=== PATIENT | male | born 1960 ===

== ENCOUNTER 2025-02-10 09:13 | Outpatient (CLI) | payer OTHER, SELFPAY ==
--- NOTE | 2025-02-10 09:27 | ECG_ITS ---
Test Date: 2025-02-10 09:44:28 Measurements Intervals Bieber Rate: 74 P: 80 OK: 217 QRS: 71 QRSD: 97 T: 75 QT: 384 QTc: 427 Interpretive Statements SINUS RHYTHM WITH FIRST DEGREE AV BLOCK ANTEROSEPTAL INFARCT, AGE INDETERMINATE ABNORMAL ECG No previous ECG available for comparison Electronically Signed On 02-10-2025 10:05:46 TILE DECORATOR by John Boogie D.O.
[2025-02-10 09:31] LABS: Hematocrit 41.0 % (40.0-54.0); Hemoglobin 13.8 g/dL (14.0-18.0); Immature Granulocyte Percent A 0.4 % (0.0-0.0); Lymphocytes Absolute Auto 1.33 K/mm3 (1.10-4.50); Mean Corpuscular HGB Conc 33.7 g/dL (32-36); Mean Corpuscular Hemoglobin 32.6 pg (27.0-31.0); Mean Corpuscular Volume 96.9 fL (78.0-102.0); Nucleated Red Blood Cells Absolute Auto 0.00 K/mm3 (0.00-0.00); Nucleated Red Blood Cells Perc 0.0 % (0-0.0); Platelet Count Result 374 K/mm3 (150-420); Red Blood Count 4.23 M/mm3 (4.70-6.10); White Blood Count 8.2 K/mm3 (4.8-10.8)
--- OUTSIDE RECORDS SUMMARY | 2025-02-10 09:32 | XMS_ITS | Clinical Summary ---
Author Organization [facility] Address [address] [place] [id number] Care Team Providers Care Metallurgical Inspector Name Role Phone Michele Marley MD Primary Care Provider Allergies Active Allergy Reactions Criticality Noted Date Comments Gina Mobley 04/20/2021 Altered mental status Medications SYMBICORT 160-4.5 MCG/ACT inhaler Inhale 2 puffs into the lungs daily. 04/15/2021 Active citalopram 20 MG tablet Take 1 tablet by mouth daily. 03/11/2021 Active montelukast 10 MG tablet Take 1 tablet by mouth daily. 03/24/2021 Active omeprazole 20 MG capsule Take 1 capsule by mouth daily. 02/06/2021 Active Active Problems Problem Noted Date Diagnosed Date Trigger middle finger of left hand 04/22/2021 Dupuytren's contracture of left hand 04/22/2021 Family History Medical History Relation Comments No Known Problems Brother 2 No Known Problems Brother 3 No Known Problems Brother 4 Heart Attack Father blood clotting problem Father Asthma Mother Heart Attack Mother Relation Status Comments Brother 1 Brother 2 Alive Brother 3 Alive Brother 4 Alive Father Mother Social History Tobacco Use Types Packs/Day Years Used Date Smoking Tobacco: Every Day Cigarettes Smokeless Tobacco: Never Alcohol Use Standard Drinks/Week Comments Not Currently 0 (1 standard drink = 0.6 oz pur e alcohol) Sex and Gender Information Value Date Recorded Sex Assigned at Not on file Legal Sex Male 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 Gender Identity Not on file Sexual Orientation Not on file Last Filed Vital Signs Vital Sign Reading Time Taken Comments Blood Pressure - - Pulse - - Temperature - - Respiratory Rate - - Oxygen Saturation - - Inhaled Oxygen Concentration - - Weight 64.9 kg (143 lb) 04/20/2021 2:46 PM KEY ACCOUNT EXECUTIVE Height 182.9 cm (6') 04/20/2021 2:46 PM KEY ACCOUNT EXECUTIVE Body Mass Index 19.39 04/20/2021 2:46 PM KEY ACCOUNT EXECUTIVE Plan of Treatment Health Maintenance Due Date Last Done Comments Colorectal Cancer Screening Colonoscopy (10 Years) 1960 Annual Physical 09/26/1963 Hepatitis C 1978 DTaP, Tdap and Td Vaccines ( 1 - Tdap) 09/26/1979 Pneumococcal Vaccine: 50+ Years (1 of 2 - PCV) 09/26/1979 Zoster Vaccines (1 of 2) 2010 COVID-19 Vaccine (4 - 2024-2 6 season) 2024 02/23/2020, 02/02/2020, 01/14/2020 Influenza Adult (#1) 2024 RSV Immunization or 60+ Years (1 - 1-dose 75+ series) 09/26/2035 Hepatitis A Vaccines Aged Out No long er eligible based on patient's age to complete this topic Meningococcal B Vaccine Aged Out No l onger eligible based on patient's age to complete this topic Meningococcal Vaccine Aged Out No alma chaparrita eligible based on patient's age to complete this topic RSV Immunizations Under 20 Months Aged Out No longer eligible b ased on patient's age to complete this topic [place] [address] [place] [address] Care Teams Metallurgical Inspector Relationship Specialty Start Date End Date Michele Marley MD [address] [place] [id number] PCP - General FAMILY PRACTICE 04/15/21
[2025-02-10 09:59] LABS: Anion Gap 8 mmol/L (4-12); Blood Urea Nitrogen 21 mg/dL (9-20); Calcium 9.7 mg/dL (8.4-10.2); Carbon Dioxide 27 mmol/L (22-30); Chloride 108 mmol/L (98-107); Estimated Glomerular Filt Rate > 60; Glucose 99 mg/dL (65-110); Osmolality Calculated 299 mOsm/kg (285-295); Potassium 4.5 mmol/L (3.4-5.0); Sodium 143 mmol/L (137-145)
== END 2025-02-10 09:14 | disposition home or self-care (01) ==
PROVIDERS: PCP Family Medicine; Visit Provider Family Medicine
DX: Z01.818 Encounter for other preprocedural examination (principal); R94.31 Abnormal electrocardiogram [ECG] [EKG]; I44.0 Atrioventricular block, first degree; I21.09 ST elevation (STEMI) myocardial infarction involving other coronary artery of anterior wall
CPT/HCPCS: 36415; 80048; 85025; 93005